=== PATIENT | male | born 1940 | race Caucasian/White ===

== ENCOUNTER → 2016-12-24 | Outpatient (CLI) | payer MEDICARE, BC ==
--- NOTE | 2016-12-24 11:27 | RADRPT ---
PROCEDURE: Left knee radiographs. CLINICAL INDICATION: Left knee pain. TECHNIQUE: Four views. Weight bearing. Frontal, lateral, oblique, and patellar view. COMPARISON: No prior studies are available for comparison. FINDINGS: There is no fracture or dislocation. Vascular calcifications are present consistent with atherosclerosis. There are degenerative changes with osteophytes arising from all 3 joint compartment margins. There is lateral joint compartment narrowing, subarticular cysts, and deformity. There is no lytic or blastic lesion. There is no radiopaque foreign body. IMPRESSION: 1. Atherosclerosis. 2. Severe degenerative changes of the left knee. RPTAT: QQ .Joseph Hensley MD, MD Date Time Electronically viewed and signed by .Joseph Hensley MD, MD on 12/24/2016 11:27 .R/
== END | disposition home or self-care (01) ==
LOC: HKI 10:10
PROVIDERS: ATTEND Orthopaedic Surgery
DX: M25.562 Pain in left knee (principal); I70.90 Unspecified atherosclerosis